=== PATIENT | male | born 1955 | race Caucasian/White ===

== ENCOUNTER 2016-06-09 23:58 | Inpatient (IN) | payer OTHER ==
[~2016-06-09] VITALS: Ht 180.3 cm; Wt 75.9 kg
--- NOTE | 2016-06-10 01:14 | ED CLINICAL REPORT ---
Clinical Report - Physicians/Mid Levels [facility] [address] [place] [address] 06/09/2016 23:59 Patient: CORAZON SHIPLEY Time Seen: 00:28. Arrived- By private vehicle. Historian- patient. HISTORY OF PRESENT ILLNESS Chief Complaint: FACIAL DROOP. This started yesterday about 07:00 am and is still present. It was abrupt in onset (woke with the symptoms yesterday (Jun 09)). The patient has had weakness of the left face. No numbness, tingling, impaired speech or swallowing or visual disturbance. No recent fall. No difficulty walking. At its maximum deficit described as moderate. When seen in the E.D.,deficit described as moderate. No dizziness, altered mental status, seizure or blackouts. Usually is alert and oriented X3 and has normal mobility. Similar symptoms previously: None. Recent medical care: The patient was seen recently at this facility in the emergency department. Seen for other problems. Diagnosis: (left side facial Shingles with left keratitis). ( Seen about 2 1/2 months ago at [facility]). REVIEW OF SYSTEMS The patient has had a subjective fever, joint pain, and back pain. No headache, head injury, chest pain, cough or sputum production. No sore throat, abdominal pain, nausea, diarrhea or black stools. No difficulty with urination, skin rash or bloody stools. All systems otherwise negative, except as recorded above. PAST HISTORY See nurses notes. Hypertension. Gastroesophageal reflux. Anxiety. Substance abuse (heroin). Surgeries: Hip surgery. Medications: ALPRAZolam Oral. Atenolol Oral. Lisinopril Oral. Protonix Oral. Allergies: Penicillins. SOCIAL HISTORY Smoker- current status unknown. Alcohol use. History of drug use muscles the drug - usually in the left deltoid area: heroin. Not an IV drug user. Is a local resident. ADDITIONAL NOTES The nursing notes have been reviewed. PHYSICAL EXAM Vital Signs: 06/10/2016 01:10 BP: 130/76. HR: 92. RR: 16. O2 saturation: 100%. Temp: 100.6 F. 06/10/2016 00:08 BP: 145/84. HR: 107. RR: 22. O2 saturation: 98%. Temp: 99.8 F. Pain level now: 7/10. Appearance: Alert. Patient in moderate distress. Odor of alcohol is not present. Head: Head atraumatic. Eyes: No nystagmus. Right pupil round and reactive to light directly and consensually. Right pupil not dilated or constricted. Right cornea: small abrasion(s) located inferiorly and laterally. No foreign body or ulceration. Right anterior chamber: No hyphema. Right conjunctiva: mild swelling. Right periorbital area: mild erythema. No tenderness or swelling. ENT: Normal ENT inspection. Airway intact. Pharynx normal. No trouble handling secretions or pharyngeal erythema. Neck: Normal inspection. Neck supple. No meningeal signs or carotid bruit. CVS: Heart sounds normal. Pulses normal. No cardiac murmur. Respiratory: No respiratory distress. Breath sounds normal. Abdomen: Soft and nontender. Back: Normal inspection. Skin: No cyanosis. Skin dry. No pallor. Normal skin color. No rash. Normal skin turgor. No diaphoresis. Extremities: Extremities exhibit normal ROM. No calf tenderness. No lower extremity edema. Neuro: Alert. Oriented X 3. No aphasia. Mood/affect normal. Mild dysarthria. Cranial nerve deficit present, as evidenced by a right facial droop, right facial weakness and ptosis on the right (unable to wrinkle the right forehead). No EOM weakness or palsy, nystagmus, hearing deficit or uvular deviation. No tongue deviation, difficulty swallowing, trapezius weakness or sternocleidomastoid weakness. Moderate right-sided facial weakness. No sparing of forehead. No decrease in corneal reflex. Normal gait. The patient has had localized weakness of the right face (moderate), No right arm weakness, right hand weakness, right leg weakness or right foot weakness. No sensory deficit. No depression of the gag reflex. LABS, X-RAYS, AND EKG CT Head: No hemorrhage, no intracranial mass, no midline shift, no hydrocephalus and no atrophy. (No acute intracranial abnormality. Mild bilateral ethmoid and right maxillary sinus mucosal disease). Head CT performed without contrast. The study was independently viewed by me, interpreted by the radiologist and discussed with the radiologist. Laboratory Tests: CBC w Diff: (RONALD: 06/10/2016 00:15) ( MsgRcvd 06/10/2016 01:07) Final results Test Result Flag Units (Reference) WHITE BLOOD COUNT 12.3 H K/uL (4.5-11.5) RED BLOOD COUNT 4.41 L M/uL (4.50-5.90) HEMOGLOBIN 12.8 L gm/dL (13.5-17.5) HEMATOCRIT 39.5 L % (41.0-53.0) MEAN CELL VOLUME 90 fL (80-100) MEAN CORPUSCULAR HGB 29 pg (26-34) MEAN CORPUSCULAR HGB CONC 33 g/dL (31-37) RED CELL DISTRIBUTION WIDTH 13.5 % (11.6-14.8) PLATELET COUNT 262 K/uL (150-400) LYMPH % 25.3 % (25-40) MONO % 2.4 L % (3-14) GRANULOCYTE % 72.3 SED RATE WESTERGREN 18 mm/hr (0-20) CMP: (RONALD: 06/10/2016 00:15) ( MsgRcvd 06/10/2016 01:00) Final results Test Result Flag Units (Reference) GLUCOSE 84 mg/dL (70-110) BUN 4 L mg/dL (7-18) CREATININE 0.6 mg/dL (0.6-1.3) Estimated GFR >60 mL/min Estimated GFR- >60 mL/min Note: Persistent reduction over 3 months in eGFR<60 mL/min/1.73 m2 defines CKD. Patients with eGFR values>=60 mL/min/1.73 m2 may also have CKD if evidence ofpersistent proteinuria. Additional information may be foundat www.kidney.org. SODIUM 140 mmol/L (136-145) POTASSIUM 4.0 mmol/L (3.5-5.1) CHLORIDE 102 mmol/L (98-107) CARBON DIOXIDE 30 mmol/L (21-32) CALCIUM 8.3 L mg/dL (8.5-10.1) TOTAL PROTEIN 6.6 g/dL (6.4-8.2) ALBUMIN 3.0 L g/dL (3.3-5.0) BILIRUBIN, TOTAL 0.6 mg/dL (0.0-1.0) ALKALINE PHOSPHATASE 91 U/L (46-116) AST (SGOT) 26 U/L (15-37) ALT (SGPT) 17 U/L (12-78) C-REACTIVE PROTEIN 1.9 H mg/dL (0.0-0.9) . Microbiology: Blood culture x2 ordered. Pulse Oximetry: 06/10/2016 00:08 O2 saturation: 98%. (FIO2 - room air). Interpretation: normal. PROGRESS AND PROCEDURES Course of Care: Acyclovir 800 mg PO given. Normal Saline 1 liter IVPB given. Vancomycin 2 grams IVPB given. Solu-Medrol 125 mg IVP given. Dilaudid 1 mg IVP given. Pt with classic Lua's Palsy symptoms and exam, but also with fever. CT unremarkable except for ethmoid and maxillary sinusitis. No indication of cavernous vein thrombosis now or brain abscess, but may consider MRI if not improving. Pt is also an injection drug user and has a fever ("shooter with a fever") and thus endocarditis must be ruled out (blood cultures, echo - transthoracic and then transesophageal if needed). See: Ludwin RJ, Bj FD. Bacterial infections in drug users. N Engl J Med 2005;353:8002-6380. Discussed case with hospitalist, ([facility] call returned 02:12). Reviewed test results. Agreed upon treatment plan. Health care provider will see patient in hospital. Patient/family counseled. Old ED records reviewed. Admission orders written. Disposition: Admitted to Acute Care. Condition: stable and improved. CLINICAL IMPRESSION Acute fever (with history of injection drug use). 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 Acute maxillary and ethmoidal sinusitis (bilateral ethmoid and right maxillary sinus mucosal disease). Chronic substance abuse- tobacco (cigarettes), heroin. No intoxication, perceptual disturbances or drug induced psychotic disorder. Mild acute anemia. Mild leukocytosis. No lymphocytosis. Possible acute infective endocarditis with drug abuse. Clinical picture does not suggest brain abscess. (Electronically signed by Murphy Solitario DO 06/10/2016 4:07)
--- NOTE | 2016-06-10 01:14 | ED NURSING NOTES ---
Clinical Report - Nurses [place] [address] [address] 06/09/2016 23:59 Patient: CORAZON SHIPLEY TRIAGE Triage time 0008 AM. Acuity: LEVEL 3. Chief Complaint: WEAKNESS, NUMBNESS and FACIAL DROOP and (left side). Alert. No acute distress. SEPSIS SCREEN: Sepsis Screen. Negative (no infection suspected/documented). --00:22 Carolyne Holloway R.N. 00:08 06/10/16. BP: 145/84 (regular adult cuff) taken on the left arm, via an automated monitor, while lying. HR: 107. RR: 22. O2 saturation: 98% on room air. Temp: 99.8 F (oral). Pain level now: 11/10. --00:22 Carolyne Holloway R.N. CESAR COMA SCORE: Corn Coma Scale: 15- eyes open spontaneously (4); best verbal response- oriented x 4 (5); best motor response- obeys commands (6). --00:22 Carolyne Holloway R.N. 01:10 06/10/16. BP: 130/76. HR: 92. RR: 16. O2 saturation: 100%. Temp: 100.6 F (rectal). --01:10 Sriram Muñiz R.N. Chief Complaint: FACIAL DROOP. --01:11 Sriram Muñiz R.N. Weight: 79.3 kg stated. Height/Length: 70 inches Per Patient. BMI: 25.1. --00:17 Carolyne Holloway R.N. Medications ALPRAZolam Oral. Atenolol Oral. Lisinopril Oral. Protonix Oral. --00:09 Carolyne Holloway R.N. Medication/allergy information source: the patient. --00:22 Carolyne Holloway R.N. Allergies Penicillins. --00: Carolyne Holloway R.N. History Arrived by private vehicle. Historian: patient. ( PT states as of this am pt noticed eye tearing up on right side with redness, right side droopiness at about 8pm with numbness accompanied with trouble speaking "tongue gets thicker"). Onset was gradual. (4 hours). He has had dizziness. He has had new onset of numbness of the right face. No headache, recent fall, impaired speech or trouble walking. 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 PAST MEDICAL HX: Immunizations: up-to-date. SOCIAL HX: Heavy tobacco smoker- 1 pack per day. Alcohol use. History of weekly drug use: heroin. No infectious disease exposure. ABUSE ASSESSMENT: No report of abuse. SELF HARM ASSESSMENT: A self harm assessment was performed. The patient answered "no" to the question "Do you have thoughts of harming or killing yourself?" and "Have you recently had thoughts about harming or killing others?". FALL RISK ASSESSMENT: Fall risk assessment completed. No fall risk identified. NUTRITIONAL RISK ASSESSMENT: The nutritional risk assessment revealed no deficiencies. FUNCTIONAL ASSESSMENT: Functional assessment: no impairments noted. LEARNING NEEDS ASSESSMENT: The learning needs assessment revealed no barriers. SKIN INTEGRITY ASSESSMENT: Skin integrity risk assessment completed. No skin integrity risk identified. --00:22 Carolyne Holloway R.N. PROBLEMS: Herpes Zoster. Anxiety Reaction. Hypertension. Gastroesophageal Reflux Disease. --00:09 Carolyne Holloway R.N. ADDITIONAL SURGERIES: Hip Surgery. --00:09 Carolyne Holloway R.N. PHYSICAL ASSESSMENT Ambulatory to room. Baseline functional status: usually alert, oriented x4 and cooperative. Verbal response: usually clear and appropriate. Motor response: usually steady gait and moves all extremities equally GENERAL / NEURO / PSYCH: Awake. Oriented X 4. Alert. Appears in no acute distress. Slurred speech. Mood/affect normal. Moves all extremities equally. No motor deficit. He has had numbness of the right face. No sensory deficit. HEENT: No facial asymmetry noted. Right-sided facial weakness. Pupils equal, round and reactive to light. EOM intact. Pharynx within normal limits. RESPIRATORY: Breath sounds within normal limits. Respirations not labored. CVS: Normal sinus rhythm noted. Capillary refill less than 2 seconds. SKIN: Skin is intact, warm and dry. --00:37 Sriram Muñiz R.N. NURSING PROGRESS NOTES Call light placed in reach. Side rails up x 2. Bed placed in lowest position. Brakes of bed on. --00:37 Sriram Muñiz R.N. 01:19 06/10/2016 Site #1 started via IV in the right forearm with an 20g angiocath; one attempt. Blood drawn: rainbow set. Saline lock flushed with 10 mL saline. --01:19 Sriram Muñiz R.N. 01:19 06/10/2016 Started IV Fluids IV NS (Saline); bolus of 1000 mL wide open via site #1 via IV pump. Allergies verified and confirmed 5 rights. IV patency established. IV site checked: no pain, redness, or swelling. IV flushed thoroughly pre- and post-medication administration. --01:19 Sriram Muñiz R.N. 01:46 06/10/2016 SOLU-MEDROL (MethylPREDNISolone Sodium Succ) IVP 125 mg given over 2 minute(s) via site #1. Allergies verified and confirmed 5 rights. IV patency established. IV site checked: no pain, redness, or swelling. IV flushed thoroughly pre- and post-medication administration. IVP given by RN. --01:46 Sriram Muñiz R.N. 01:46 06/10/2016 Acyclovir PO 800 mg given. Allergies verified and confirmed 5 rights. --01:46 Sriram Muñiz R.N. 01:53 06/10/2016 Started 2 gm of Vancomycin IVPB in bag #1 500 mL; at 270 mL/hr over 2 hour(s) via site #1 via IV pump. Allergies verified and confirmed 5 rights. IV patency established. IV site checked: no pain, redness, or swelling. IV flushed thoroughly pre- and post-medication administration. --01:53 Sriram Muñiz R.N. 01:54 06/10/16. BP: 134/77. HR: 86. RR: 16. O2 saturation: 100%. --01:55 Sriram Muñiz R.N. Reassurance given. Call light placed in reach. Side rails up x 2. Bed placed in lowest position. Brakes of bed on. --01:55 Sriram Muñiz R.N. 01:56 06/10/2016 Proparacaine Eye Drops 2 drop given. (placed at bedside). --01:56 Kevin Quesada R.N. 01:56 06/10/2016 FLUORESCEIN Opth soln 1 Strip given. (placed at bedside). --01:56 Kevin Quesada R.N. 02:48 06/10/2016 Dilaudid (HYDROmorphone HCl PF) IVP 1 mg given over 2 minute(s) via site #1. Allergies verified, confirmed 5 rights and sedative warning given to the patient. IV patency established. IV site checked: no pain, redness, or swelling. IV flushed thoroughly pre- and post-medication administration. IVP given by RN. --02:48 Sriram Muñiz R.N. 02:49 06/10/16. BP: 141/77. HR: 83. RR: 16. O2 saturation: 100%. --02:50 Sriram Muñiz R.N. Reassurance given. Call light placed in reach. Side rails up x 2. Bed placed in lowest position. Brakes of bed on. Care transferred and report given (Aliya). --02:50 Sriram Muñiz R.N. 03:15 06/10/2016 IV Fluids IV NS Continued: upon admission at the rate of 250 mL/hr bag #2. IV patency established. IV site checked: no pain, redness, or swelling. IV flushed thoroughly. --03:15 Sriram Muñiz R.N. DISPOSITION / DISCHARGE Disposition: observation in Acute Care (0312 AM). Report was given to a nurse via a phone call. Report included patient's care, treatment, medications, reviewed medication reconcilliation, and condition (including any recent changes or anticipated changes). All questions were answered. Report was acknowledged and care was transferred. (Aliya). ( Patient transported up to room 211 by [facility] manager facility.). Patient's personal items include: shirt, pants, undergarments, coat, glasses, wallet and cell phone; items were placed in belongings bag, given to the patient and transported with the patient. Collection of belongings was witnessed by 1 nurse. --03:13 Sriram Muñiz R.N. Departure time: 0313 AM. --03:13 Sriram Muñiz R.N. 03:14 06/10/2016 Started IV Fluids IV NS (Saline); at 250 mL/hr via site #1 via IV pump. Allergies verified and confirmed 5 rights. IV patency established. IV site checked: no pain, redness, or swelling. IV flushed thoroughly pre- and post-medication administration. --03:14 Sriram Muñiz R.N. 03:14 06/10/2016 Vancomycin IVPB Continued: upon admission at the rate of 270 mL/hr. 200 mL remaining bag #1. IV patency established. IV site checked: no pain, redness, or swelling. IV flushed thoroughly. --03:14 Sriram Muñiz R.N. 03:14 06/10/2016 IV Fluids IV NS Discontinued: bag #1 completed upon transfer. Total amount infused: 1000 mL. IV patency established. IV site checked: no pain, redness, or swelling. IV flushed thoroughly. --03:14 Sriram Muñiz R.N. Locked/Released at 06/10/2016 3:15 by Sriram Muñiz R.N.
--- NOTE | 2016-06-10 01:14 | ED ORDER SUMMARY ---
..... Patient: CORAZON SHIPLEY OrderSheet [facility] VisitID: [id number] [place] [address] 60y, M Registration Date/Time: 06/09/2016 ORDER SHEET Weight: 79.3 kg (stated) Allergies: Penicillins GENERAL ORDERS: CT Head wo Cont (right face weakness - c/w Lua's Palsy) Urgent (00:39 06/10/2016 PHutchinson DO) (Ack 0:47 CHategekimana) (1:05 GUnger) Rectal Temperature (00:41 06/10/2016 PHutchinson DO) (1:11 HOShaughnessy R.N.) CBC w Diff Urgent (00:42 06/10/2016 PHutchinson DO) (Ack 0:47 CHategekimana) (0:48 EHassan R.N.) CMP Urgent (00:42 [facility]2016 [facility] (Ack 0:47 CHategekimana) (0:48 EHassan R.N.) ESR Urgent (00:42 06/10/2016 PHutchinson DO) (Ack 0:47 CHategekimana) (0:48 EHassan R.N.) CRP Urgent (00:42 06/10/2016 PHutchinson DO) (Ack 0:47 CHategekimana) (0:48 EHassan R.N.) Blood Culture (No) (N/A) Urgent (01:14 [facility]10/2016 [facility] (Ack 1:18 CHategekimana) (1:25 HOShaughnessy R.N.) MEDICATION ORDERS: Acyclovir PO 800 mg (NOW) (01:33 06/10/2016 [facility] DO) (1:46 HOShaughnessy R.N.) Proparacaine Eye Drops (Solution 0.5 %) 2 drops (place at bedside) (01:55 06/10/2016 JQuivey R.N. verbal order read back to [facility]) (1:56 JQuivey R.N.) Fluorescein Eye Strips 1 strips (Place at bedside ) (01:55 06/10/2016 Marques Gipson verbal order read back to [facility]) (1:56 Marques Gutierrez.) IV FLUIDS: IV NS : initial bolus 1000 mL (1000 mL/hr), then 250 mL/hr for X4 (NOW) (00:42 06/10/2016 [facility]) (1:19 Roberta R.N.) Vancomycin IV 2 gm/500 mL (after blood cultures) (01:15 06/10/2016 [facility]) (1:53 Roberta R.N.) Solu-MEDROL IV 125 mg (NOW) (01:32 06/10/2016 [facility]) (1:46 Roberta R.N.) Dilaudid IV 1 mg (HIGH ALERT MEDICATION, NOW) (02:24 06/10/2016 [facility]) (2:48 Roberta R.N.) ORDER SHEET NOTES: [Electronically signed by Sriram Muñiz R.N. (03:15 06/10/2016)] [Electronically signed by Murphy Solitario DO (04:07 06/10/2016)] [Electronically locked/signed by Sriram Muñiz R.N. (03:15 06/10/2016)]
--- NOTE | 2016-06-10 01:14 | ED NURSING NOTES ---
Clinical Report - Nurses [place] [address] [place] [address] 06/09/2016 23:59 Patient: CORAZON SHIPLEY TRIAGE Triage time 0008 AM. Acuity: LEVEL 3. Chief Complaint: WEAKNESS, NUMBNESS and FACIAL DROOP and (left side). Alert. No acute distress. SEPSIS SCREEN: Sepsis Screen. Negative (no infection suspected/documented). --00:22 Carolyne Holloway R.N. 00:08 06/10/16. BP: 145/84 (regular adult cuff) taken on the left arm, via an automated monitor, while lying. HR: 107. RR: 22. O2 saturation: 98% on room air. Temp: 99.8 F (oral). Pain level now: 11/10. --00:22 Carolyne Holloway R.N. CESAR COMA SCORE: [place] Coma Scale: 15- eyes open spontaneously (4); best verbal response- oriented x 4 (5); best motor response- obeys commands (6). --00:22 Carolyne oHlloway R.N. 01:10 06/10/16. BP: 130/76. HR: 92. RR: 16. O2 saturation: 100%. Temp: 100.6 F (rectal). --01:10 Sriram Muñiz R.N. Chief Complaint: FACIAL DROOP. --01:11 Sriram Muñiz R.N. Weight: 79.3 kg stated. Height/Length: 70 inches Per Patient. BMI: 25.1. --00:17 Carolyne Holloway R.N. Medications ALPRAZolam Oral. Atenolol Oral. Lisinopril Oral. Protonix Oral. --00:09 Carolyne Holloway R.N. Medication/allergy information source: the patient. --00:22 Carolyne Holloway R.N. Allergies Penicillins. --00: Carolyne Holloway R.N. History Arrived by private vehicle. Historian: patient. ( PT states as of this am pt noticed eye tearing up on right side with redness, right side droopiness at about 8pm with numbness accompanied with trouble speaking "tongue gets thicker"). Onset was gradual. (4 hours). He has had dizziness. He has had new onset of numbness of the right face. No headache, recent fall, impaired speech or trouble walking. 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 PAST MEDICAL HX: Immunizations: up-to-date. SOCIAL HX: Heavy tobacco smoker- 1 pack per day. Alcohol use. History of weekly drug use: heroin. No infectious disease exposure. ABUSE ASSESSMENT: No report of abuse. SELF HARM ASSESSMENT: A self harm assessment was performed. The patient answered "no" to the question "Do you have thoughts of harming or killing yourself?" and "Have you recently had thoughts about harming or killing others?". FALL RISK ASSESSMENT: Fall risk assessment completed. No fall risk identified. NUTRITIONAL RISK ASSESSMENT: The nutritional risk assessment revealed no deficiencies. FUNCTIONAL ASSESSMENT: Functional assessment: no impairments noted. LEARNING NEEDS ASSESSMENT: The learning needs assessment revealed no barriers. SKIN INTEGRITY ASSESSMENT: Skin integrity risk assessment completed. No skin integrity risk identified. --00:22 Carolyne Holloway R.N. PROBLEMS: Herpes Zoster. Anxiety Reaction. Hypertension. Gastroesophageal Reflux Disease. --00:09 Carolyne Holloway R.N. ADDITIONAL SURGERIES: Hip Surgery. --00:09 Carolyne Holloway R.N. PHYSICAL ASSESSMENT Ambulatory to room. Baseline functional status: usually alert, oriented x4 and cooperative. Verbal response: usually clear and appropriate. Motor response: usually steady gait and moves all extremities equally GENERAL / NEURO / PSYCH: Awake. Oriented X 4. Alert. Appears in no acute distress. Slurred speech. Mood/affect normal. Moves all extremities equally. No motor deficit. He has had numbness of the right face. No sensory deficit. HEENT: No facial asymmetry noted. Right-sided facial weakness. Pupils equal, round and reactive to light. EOM intact. Pharynx within normal limits. RESPIRATORY: Breath sounds within normal limits. Respirations not labored. CVS: Normal sinus rhythm noted. Capillary refill less than 2 seconds. SKIN: Skin is intact, warm and dry. --00:37 Sriram Muñiz R.N. NURSING PROGRESS NOTES Call light placed in reach. Side rails up x 2. Bed placed in lowest position. Brakes of bed on. --00:37 Sriram Muñiz R.N. 01:19 06/10/2016 Site #1 started via IV in the right forearm with an 20g angiocath; one attempt. Blood drawn: rainbow set. Saline lock flushed with 10 mL saline. --01:19 Sriram Muñiz R.N. 01:19 06/10/2016 Started IV Fluids IV NS (Saline); bolus of 1000 mL wide open via site #1 via IV pump. Allergies verified and confirmed 5 rights. IV patency established. IV site checked: no pain, redness, or swelling. IV flushed thoroughly pre- and post-medication administration. --01:19 Sriram Muñiz R.N. 01:46 06/10/2016 SOLU-MEDROL (MethylPREDNISolone Sodium Succ) IVP 125 mg given over 2 minute(s) via site #1. Allergies verified and confirmed 5 rights. IV patency established. IV site checked: no pain, redness, or swelling. IV flushed thoroughly pre- and post-medication administration. IVP given by RN. --01:46 Sriram Muñiz R.N. 01:46 06/10/2016 Acyclovir PO 800 mg given. Allergies verified and confirmed 5 rights. --01:46 Sriram Muñiz R.N. 01:53 06/10/2016 Started 2 gm of Vancomycin IVPB in bag #1 500 mL; at 270 mL/hr over 2 hour(s) via site #1 via IV pump. Allergies verified and confirmed 5 rights. IV patency established. IV site checked: no pain, redness, or swelling. IV flushed thoroughly pre- and post-medication administration. --01:53 Sriram Muñiz R.N. 01:54 06/10/16. BP: 134/77. HR: 86. RR: 16. O2 saturation: 100%. --01:55 Sriram Muñiz R.N. Reassurance given. Call light placed in reach. Side rails up x 2. Bed placed in lowest position. Brakes of bed on. --01:55 Sriram Muñiz R.N. 01:56 06/10/2016 Proparacaine Eye Drops 2 drop given. (placed at bedside). --01:56 Kevin Quesada R.N. 01:56 06/10/2016 FLUORESCEIN Opth soln 1 Strip given. (placed at bedside). --01:56 Kevin Quesada R.N. 02:48 06/10/2016 Dilaudid (HYDROmorphone HCl PF) IVP 1 mg given over 2 minute(s) via site #1. Allergies verified, confirmed 5 rights and sedative warning given to the patient. IV patency established. IV site checked: no pain, redness, or swelling. IV flushed thoroughly pre- and post-medication administration. IVP given by RN. --02:48 Sriram Muñiz R.N. 02:49 06/10/16. BP: 141/77. HR: 83. RR: 16. O2 saturation: 100%. --02:50 Sriram Muñiz R.N. Reassurance given. Call light placed in reach. Side rails up x 2. Bed placed in lowest position. Brakes of bed on. Care transferred and report given (Aliya). --02:50 Sriram Muñiz R.N. 03:15 06/10/2016 IV Fluids IV NS Continued: upon admission at the rate of 250 mL/hr bag #2. IV patency established. IV site checked: no pain, redness, or swelling. IV flushed thoroughly. --03:15 Sriram Muñiz R.N. DISPOSITION / DISCHARGE Disposition: observation in Acute Care (0312 AM). Report was given to a nurse via a phone call. Report included patient's care, treatment, medications, reviewed medication reconcilliation, and condition (including any recent changes or anticipated changes). All questions were answered. Report was acknowledged and care was transferred. (Aliya). ( Patient transported up to room 211 by Lance prototype technician.). Patient's personal items include: shirt, pants, undergarments, coat, glasses, wallet and cell phone; items were placed in belongings bag, given to the patient and transported with the patient. Collection of belongings was witnessed by 1 nurse. --03:13 Sriram Muñiz R.N. Departure time: 0313 AM. --03:13 Sriram Muñiz R.N. 03:14 06/10/2016 Started IV Fluids IV NS (Saline); at 250 mL/hr via site #1 via IV pump. Allergies verified and confirmed 5 rights. IV patency established. IV site checked: no pain, redness, or swelling. IV flushed thoroughly pre- and post-medication administration. --03:14 Sriram Muñiz R.N. 03:14 06/10/2016 Vancomycin IVPB Continued: upon admission at the rate of 270 mL/hr. 200 mL remaining bag #1. IV patency established. IV site checked: no pain, redness, or swelling. IV flushed thoroughly. --03:14 Sriram Muñiz R.N. 03:14 06/10/2016 IV Fluids IV NS Discontinued: bag #1 completed upon transfer. Total amount infused: 1000 mL. IV patency established. IV site checked: no pain, redness, or swelling. IV flushed thoroughly. --03:14 Sriram Muñiz R.N. Locked/Released at 06/10/2016 3:15 by Sriram Muñiz R.N.
--- NOTE | 2016-06-10 01:14 | ED ORDER SUMMARY ---
..... Patient: CORAZON SHIPLEY OrderSheet [facility] VisitID: [id number] [place] [address] 60y, M Registration Date/Time: 06/09/2016 ORDER SHEET Weight: 79.3 kg (stated) Allergies: Penicillins GENERAL ORDERS: CT Head wo Cont (right face weakness - c/w Lua's Palsy) Urgent (00:39 06/10/2016 PHutchinson DO) (Ack 0:47 CHategekimana) (1:05 GUnger) Rectal Temperature (00:41 06/10/2016 PHutchinson DO) (1:11 HOShaughnessy R.N.) CBC w Diff Urgent (00:42 06/10/2016 PHutchinson DO) (Ack 0:47 CHategekimana) (0:48 EHassan R.N.) CMP Urgent (00:42 [facility]10/2016 [facility] (Ack 0:47 CHategekimana) (0:48 EHassan R.N.) ESR Urgent (00:42 06/10/2016 PHutchinson DO) (Ack 0:47 CHategekimana) (0:48 EHassan R.N.) CRP Urgent (00:42 06/10/2016 PHutchinson DO) (Ack 0:47 CHategekimana) (0:48 EHassan R.N.) Blood Culture (No) (N/A) Urgent (01:14 [facility]10/2016 [facility] (Ack 1:18 CHategekimana) (1:25 HOShaughnessy R.N.) MEDICATION ORDERS: Acyclovir PO 800 mg (NOW) (01:33 06/10/2016 [facility] DO) (1:46 HOShaughnessy R.N.) Proparacaine Eye Drops (Solution 0.5 %) 2 drops (place at bedside) (01:55 06/10/2016 JQuivey R.N. verbal order read back to [facility]) (1:56 JQuivey R.N.) Fluorescein Eye Strips 1 strips (Place at bedside ) (01:55 06/10/2016 Marques Gipson verbal order read back to [facility]) (1:56 Marques Gutierrez.) IV FLUIDS: IV NS : initial bolus 1000 mL (1000 mL/hr), then 250 mL/hr for X4 (NOW) (00:42 06/10/2016 [facility]) (1:19 Roberta R.N.) Vancomycin IV 2 gm/500 mL (after blood cultures) (01:15 06/10/2016 [facility]) (1:53 Roberta R.N.) Solu-MEDROL IV 125 mg (NOW) (01:32 06/10/2016 [facility]) (1:46 Roberta R.N.) Dilaudid IV 1 mg (HIGH ALERT MEDICATION, NOW) (02:24 06/10/2016 [facility]) (2:48 Roberta R.N.) ORDER SHEET NOTES: [Electronically signed by Sriram Muñiz R.N. (03:15 06/10/2016)] [Electronically signed by Murphy Solitario DO (04:07 06/10/2016)] [Electronically locked/signed by Sriram Muñiz R.N. (03:15 06/10/2016)]
[2016-06-10 03:29] VITALS: BP 156/96
--- NOTE | 2016-06-10 04:08 | ED DISCHARGE INSTRUCTIONS ---
Patient: CORAZON SHIPLEY General Instructions [facility] VisitID: [id number] [place] [address] 60y, M Registration Date/Time: 06/09/2016 Acute fever (with history of injection drug use). 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 Acute maxillary and ethmoidal sinusitis (bilateral ethmoid and right maxillary sinus mucosal disease). Chronic substance abuse- tobacco (cigarettes), heroin. No intoxication, perceptual disturbances or drug induced psychotic disorder. Mild acute anemia. Mild leukocytosis. No lymphocytosis. ADDITIONAL INFORMATION Opiate Abuse Use and abuse of heroin or prescription pain medicines (Vicodin, codeine) may lead to physical ADDICTION or psychological DEPENDENCE. Once this occurs, you are at greater risk for any of the following: - Craving for the drug and unable to stop using the drug even though you think you want to stop (psychological dependence) - Drug withdrawal symptoms if you stop taking the drug (physical addiction) - Loss of your job or your family - Arrest, conviction and alf sentence for possession of an illegal substance or for driving under the influence of such a substance - Accidental injuries to yourself or others while you are under the influence of the drug (in a car or at home). - HIV infection (much greater risk if you use IV drugs) - Other sexually transmitted diseases (Herpes, chlamydia, gonorrhea and others) - Severe and fatal infection of the heart valves (if you use IV drugs) - Stroke, heart attack, hepatitis B or C, kidney failure - from overdose Home Care: 1) Admit you have a drug problem. Ask for help from your family and close friends. 2) Seek professional help. This could be individual psychotherapy, counseling, or a drug treatment program (outpatient or residential). 3) Join a self-help group for drug abuse. 4) Avoid friends who abuse drugs themselves or tempt you to continue your habit 5) Eat a balanced diet and begin a regular exercise program. Follow Up with your doctor or as advised by our staff. Contact one of the resources below for help. National [place] on Alcoholism and Drug Dependence, www.ncadd.org 223-153-TWYM Narcotics Anonymous (check your phone book for a local listing or call 160-037-4838) www.na.org National Alcohol and Substance Abuse Information Center (for referral to treatment programs) Www.Addictioncare[employer] 086-911-0949 Get Prompt Medical Attention if any of the following occur: -- Symptoms of withdrawal (agitation, anxiety, trembling, sweats, diarrhea, unable to sleep) -- Chest pain -- Unexplained fever over 100.4 F (38.0 C) -- Excessive drowsiness or inability to be awakened -- Slow breathing under 8 breaths per minute -- Shortness of breath or cough with colored sputum -- Redness, swelling or tenderness at an injection site You have been given the following additional information: Opiate Abuse (Electronically signed by Murphy Solitario DO 06/10/2016 4:07)
--- NOTE | 2016-06-10 04:08 | ED DISCHARGE INSTRUCTIONS ---
Patient: CORAZON SHIPLEY General Instructions [facility] VisitID: [id number] [place] [address] 60y, M Registration Date/Time: 06/09/2016 Acute fever (with history of injection drug use). 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 Acute maxillary and ethmoidal sinusitis (bilateral ethmoid and right maxillary sinus mucosal disease). Chronic substance abuse- tobacco (cigarettes), heroin. No intoxication, perceptual disturbances or drug induced psychotic disorder. Mild acute anemia. Mild leukocytosis. No lymphocytosis. ADDITIONAL INFORMATION Opiate Abuse Use and abuse of heroin or prescription pain medicines (Vicodin, codeine) may lead to physical ADDICTION or psychological DEPENDENCE. Once this occurs, you are at greater risk for any of the following: - Craving for the drug and unable to stop using the drug even though you think you want to stop (psychological dependence) - Drug withdrawal symptoms if you stop taking the drug (physical addiction) - Loss of your job or your family - Arrest, conviction and usp sentence for possession of an illegal substance or for driving under the influence of such a substance - Accidental injuries to yourself or others while you are under the influence of the drug (in a car or at home). - HIV infection (much greater risk if you use IV drugs) - Other sexually transmitted diseases (Herpes, chlamydia, gonorrhea and others) - Severe and fatal infection of the heart valves (if you use IV drugs) - Stroke, heart attack, hepatitis B or C, kidney failure - from overdose Home Care: 1) Admit you have a drug problem. Ask for help from your family and close friends. 2) Seek professional help. This could be individual psychotherapy, counseling, or a drug treatment program (outpatient or residential). 3) Join a self-help group for drug abuse. 4) Avoid friends who abuse drugs themselves or tempt you to continue your habit 5) Eat a balanced diet and begin a regular exercise program. Follow Up with your doctor or as advised by our staff. Contact one of the resources below for help. National [place] on Alcoholism and Drug Dependence, www.ncadd.org 511-158-ATCT Narcotics Anonymous (check your phone book for a local listing or call 372-934-1134) www.na.org National Alcohol and Substance Abuse Information Center (for referral to treatment programs) Www.Addictioncare[employer] 770-742-1356 Get Prompt Medical Attention if any of the following occur: -- Symptoms of withdrawal (agitation, anxiety, trembling, sweats, diarrhea, unable to sleep) -- Chest pain -- Unexplained fever over 100.4 F (38.0 C) -- Excessive drowsiness or inability to be awakened -- Slow breathing under 8 breaths per minute -- Shortness of breath or cough with colored sputum -- Redness, swelling or tenderness at an injection site You have been given the following additional information: Opiate Abuse (Electronically signed by Murphy Solitario DO 06/10/2016 4:07)
--- NOTE | 2016-06-10 04:08 | ED MED RECONCILIATION SUMMARY ---
Patient: CORAZON SHIPLEY Medication Reconciliation Report [facility] VisitID: [id number] [address] [place] [address] 60y, M Registration Date/Time: 06/09/2016 Weight: 79.3 kg Height/Length: 70 in. BMI: 25.1 ALLERGIES: Penicillins The patient's Home Medications are listed below: THE FOLLOWING MEDICATIONS NEED TO BE RECONCILED: ALPRAZolam Oral Atenolol Oral Lisinopril Oral Protonix Oral The source(s) of the original Home Medication information: patient The following Medications were given to the patient in the Emergency Department: IV NS IV Fluids bolus 1000 mL wide open, administered: 06/10/2016 1:19:00 AM SOLU-MEDROL [IVP] IVP 125 mg, administered: 06/10/2016 1:46:00 AM Acyclovir [PO] PO 800 mg, administered: 06/10/2016 1:46:00 AM Vancomycin [IVPB] IVPB bolus 0, then 2 gm 270 mL/hr, administered: 06/10/2016 1:53:00 AM Proparacaine [Eye Drops] Eye Drops 2 drop, administered: 06/10/2016 1:56:00 AM FLUORESCEIN [EYE STRIPS] Opth soln 1 Strip, administered: 06/10/2016 1:56:00 AM Dilaudid [IVP] IVP 1 mg, administered: 06/10/2016 2:48:00 AM IV NS IV Fluids bolus 0, then 250 mL/hr, administered: 06/10/2016 3:14:00 AM The following Medications were prescribed to the patient: None.
--- NOTE | 2016-06-10 04:08 | ED MED RECONCILIATION SUMMARY ---
Patient: CORAZON SHIPLEY Medication Reconciliation Report [facility] VisitID: [id number] [address] [place] [address] 60y, M Registration Date/Time: 06/09/2016 Weight: 79.3 kg Height/Length: 70 in. BMI: 25.1 ALLERGIES: Penicillins The patient's Home Medications are listed below: THE FOLLOWING MEDICATIONS NEED TO BE RECONCILED: ALPRAZolam Oral Atenolol Oral Lisinopril Oral Protonix Oral The source(s) of the original Home Medication information: patient The following Medications were given to the patient in the Emergency Department: IV NS IV Fluids bolus 1000 mL wide open, administered: 06/10/2016 1:19:00 AM SOLU-MEDROL [IVP] IVP 125 mg, administered: 06/10/2016 1:46:00 AM Acyclovir [PO] PO 800 mg, administered: 06/10/2016 1:46:00 AM Vancomycin [IVPB] IVPB bolus 0, then 2 gm 270 mL/hr, administered: 06/10/2016 1:53:00 AM Proparacaine [Eye Drops] Eye Drops 2 drop, administered: 06/10/2016 1:56:00 AM FLUORESCEIN [EYE STRIPS] Opth soln 1 Strip, administered: 06/10/2016 1:56:00 AM Dilaudid [IVP] IVP 1 mg, administered: 06/10/2016 2:48:00 AM IV NS IV Fluids bolus 0, then 250 mL/hr, administered: 06/10/2016 3:14:00 AM The following Medications were prescribed to the patient: None.
--- NOTE | 2016-06-10 04:08 | ED MAR SUMMARY ---
..... Medication Administration Record [facility] [address] [place] [address] Patient: CORAZON SHIPLEY Visit ID: [id number] 60y, M Weight: 79.3 kg Height/Length: 70 in BMI: 25.1 ALLERGIES: Penicillins Start 01:19 06/10/2016 Sriram Muñiz R.N., Stop 03:14 06/10/2016 Sriram Muñiz R.N. Medication Administered: IV NS (SALINE), Dose: IV Fluids, Bolus: 1000 mL wide open, Site: #1 right forearm. Medication Ordered: IV NS : initial bolus 1000 mL (1000 mL/hr), then 250 mL/hr for X4 (NOW). Given 01:46 06/10/2016 Sriram Muñiz R.N. Medication Administered: SOLU-MEDROL [IVP] (METHYLPREDNISOLONE SODIUM SUCC), Dose: 125 mg IVP over 2 minute(s), Site: #1 right forearm. Medication Ordered: Solu-MEDROL IV 125 mg (NOW). Given 01:46 06/10/2016 Sriram Muñiz R.N. Medication Administered: ACYCLOVIR [PO], Dose: 800 mg PO. Medication Ordered: Acyclovir PO 800 mg (NOW). Start 01:53 06/10/2016 Sriram Muñiz R.N., Continued Upon Admission 03:14 06/10/2016 Sriram Muñiz R.N. Medication Administered: VANCOMYCIN [IVPB], Dose: 2 gm IVPB over 2 hour(s), Rate: 270 mL/hr, Dispensed: 500 mL bag, Site: #1 right forearm. Medication Ordered: Vancomycin IV 2 gm/500 mL (after blood cultures). Given :06/10/2016 Kevin Quesada R.N. Medication Administered: PROPARACAINE [EYE DROPS], Dose: 2 drop Eye Drops. Medication Ordered: Proparacaine Eye Drops (Solution 0.5 %) 2 drops (place at bedside). Given 01:06/10/2016 Kevin Quesada R.N. Medication Administered: FLUORESCEIN [EYE STRIPS], Dose: 1 Strip Opth soln. Medication Ordered: Fluorescein Eye Strips 1 strips (Place at bedside ). Given 02:48 06/10/2016 Sriram Muñiz R.N. Medication Administered: DILAUDID [IVP] (HYDROMORPHONE HCL PF), Dose: 1 mg IVP over 2 minute(s), Site: #1 right forearm. Medication Ordered: Dilaudid IV 1 mg (HIGH ALERT MEDICATION, NOW). Start 03:14 06/10/2016 Sriram Muñiz RJúniorNJúnior, Continued Upon Admission 03:15 06/10/2016 Sriram Muñiz R.NJúnior Medication Administered: IV NS (SALINE), Dose: IV Fluids, Rate: 250 mL/hr, Site: #1 right forearm. Medication Ordered: IV NS : initial bolus 1000 mL (1000 mL/hr), then 250 mL/hr for X4 (NOW).
--- NOTE | 2016-06-10 04:08 | ED MAR SUMMARY ---
..... Medication Administration Record [facility] [address] [place] [address] Patient: CORAZON SHIPLEY Visit ID: [id number] 60y, M Weight: 79.3 kg Height/Length: 70 in BMI: 25.1 ALLERGIES: Penicillins Start 01:19 06/10/2016 Sriram Muñiz R.N., Stop 03:14 06/10/2016 Sriram Muñiz R.N. Medication Administered: IV NS (SALINE), Dose: IV Fluids, Bolus: 1000 mL wide open, Site: #1 right forearm. Medication Ordered: IV NS : initial bolus 1000 mL (1000 mL/hr), then 250 mL/hr for X4 (NOW). Given 01:46 06/10/2016 Sriram Muñiz R.N. Medication Administered: SOLU-MEDROL [IVP] (METHYLPREDNISOLONE SODIUM SUCC), Dose: 125 mg IVP over 2 minute(s), Site: #1 right forearm. Medication Ordered: Solu-MEDROL IV 125 mg (NOW). Given 01:46 06/10/2016 Sriram Muñiz R.N. Medication Administered: ACYCLOVIR [PO], Dose: 800 mg PO. Medication Ordered: Acyclovir PO 800 mg (NOW). Start 01:53 06/10/2016 Sriram Muñiz R.N., Continued Upon Admission 03:14 06/10/2016 Sriram Muñiz R.N. Medication Administered: VANCOMYCIN [IVPB], Dose: 2 gm IVPB over 2 hour(s), Rate: 270 mL/hr, Dispensed: 500 mL bag, Site: #1 right forearm. Medication Ordered: Vancomycin IV 2 gm/500 mL (after blood cultures). Given :06/10/2016 Kevin Quesada R.N. Medication Administered: PROPARACAINE [EYE DROPS], Dose: 2 drop Eye Drops. Medication Ordered: Proparacaine Eye Drops (Solution 0.5 %) 2 drops (place at bedside). Given 01:06/10/2016 Kevin Quesada R.N. Medication Administered: FLUORESCEIN [EYE STRIPS], Dose: 1 Strip Opth soln. Medication Ordered: Fluorescein Eye Strips 1 strips (Place at bedside ). Given 02:48 06/10/2016 Sriram Muñiz R.N. Medication Administered: DILAUDID [IVP] (HYDROMORPHONE HCL PF), Dose: 1 mg IVP over 2 minute(s), Site: #1 right forearm. Medication Ordered: Dilaudid IV 1 mg (HIGH ALERT MEDICATION, NOW). Start 03:14 06/10/2016 Sriram Muñiz RJúniorNJúnior, Continued Upon Admission 03:15 06/10/2016 Sriram Muñiz R.NJúnior Medication Administered: IV NS (SALINE), Dose: IV Fluids, Rate: 250 mL/hr, Site: #1 right forearm. Medication Ordered: IV NS : initial bolus 1000 mL (1000 mL/hr), then 250 mL/hr for X4 (NOW).
[2016-06-10] MEDS ORDERED: WELLBUTRIN SR150 MG PO (04:42)
[2016-06-10] MEDS ORDERED: XANAX0.5 MG PO (04:43)
[2016-06-10] MEDS ORDERED: ATENOLOL100 MG PO (04:44)
--- NOTE | 2016-06-10 06:19 | DIAGNOSTIC IMAGING REPORT ---
PROCEDURE: CT HEAD WITHOUT CONTRAST INDICATION: WEAKNESS TECHNIQUE: Noncontrast axial images with sagittal and coronal reformations. Preliminary report provided by Pierre Day MD ([facility]). COMPARISON: None. FINDINGS: Brain and ventricles are normal. No evidence of an acute process or hemorrhage. Mild to moderate mucosal thickening of the ethmoid air cells with minimal fluid in the right maxillary sinus. Cavernous carotid vascular calcifications. IMPRESSION: 1. Negative head CT. No evidence of intracranial abnormality. 2. Mild to moderate mucosal thickening in the ethmoid air cells with minimal fluid in the right maxillary sinus (acute or chronic changes). 3. Preliminary report provided to Dr. Solitario. All CT scans at this facility use dose modulation, iterative reconstruction, and/or weight-based dosing when appropriate to reduce radiation dose to as low as reasonably achievable.
--- NOTE | 2016-06-10 06:19 | DIAGNOSTIC IMAGING REPORT ---
PROCEDURE: CT HEAD WITHOUT CONTRAST INDICATION: WEAKNESS TECHNIQUE: Noncontrast axial images with sagittal and coronal reformations. Preliminary report provided by Pierre Day MD ([facility]). COMPARISON: None. FINDINGS: Brain and ventricles are normal. No evidence of an acute process or hemorrhage. Mild to moderate mucosal thickening of the ethmoid air cells with minimal fluid in the right maxillary sinus. Cavernous carotid vascular calcifications. IMPRESSION: 1. Negative head CT. No evidence of intracranial abnormality. 2. Mild to moderate mucosal thickening in the ethmoid air cells with minimal fluid in the right maxillary sinus (acute or chronic changes). 3. Preliminary report provided to Dr. Solitario. All CT scans at this facility use dose modulation, iterative reconstruction, and/or weight-based dosing when appropriate to reduce radiation dose to as low as reasonably achievable.
== END 2016-06-10 05:30 | disposition left against medical advice (07) | DRG 74 ==
LOC: ED SRH 23:58 → TRANS SRH 06-10 02:24 → ACUTE2 SRH 06-10 02:24
PROVIDERS: ADMIT Emergency Medicine
DX: G51.0 Bell's palsy (principal); R50.9 Fever, unspecified; J01.00 Acute maxillary sinusitis, unspecified; J01.20 Acute ethmoidal sinusitis, unspecified; F11.10 Opioid abuse, uncomplicated; D64.9 Anemia, unspecified
CPT/HCPCS: 90065; 90074; 90100; 91585; 95059; 95150

== ENCOUNTER 2016-06-26 10:59 | Emergency (ER) | payer OTHER ==
[~2016-06-26 10:59] MED LIST: ATENOLOL100 MG PO; WELLBUTRIN SR150 MG PO; XANAX0.5 MG PO
--- NOTE | 2016-06-26 13:15 | ED NURSING NOTES ---
Clinical Report - Nurses [facility] [address] [place] [address] 06/26/2016 11:03 Patient: CORAZON SHIPLEY TRIAGE Triage time 11:10 Jun 26 2016. Acuity: LEVEL 3. Chief Complaint: SKIN LESION and . on (L) Buttock. Alert. CAROL COMA SCORE: Carol Coma Scale: 15- eyes open spontaneously (4); best verbal response- oriented x 4 (5); best motor response- obeys commands (6). --11:23 Kevin Davila R.N. 11:10 06/26/16. BP: 129/55. HR: 70. RR: 16. O2 saturation: 100% on room air. Temp: 99.1 F (oral). Pain level now: 11/10. Additional comments: pain in lesi. --11:23 Kevin Davila R.N. Weight: 74.8 kg. Height/Length: 71 inches Per Patient. BMI: 23. --11:19 Kevin Davila R.N. Medications ALPRAZolam Oral 0.5 mg, 4x a day. Atenolol Oral (Tablet 100 mg) 1 tablet, daily. Protonix Oral 20 mg, daily. --11:14 Kevin Davila R.N. Wellbutrin Oral 150 mg, daily. --11:14 Kevin Davila R.N. Allergies Penicillins. Definite Moderate(itching, swelling) --11:14 Kevin Davila R.N. History Arrived by private vehicle. Historian: patient. Unaccompanied. Primary physician (Sergey Graham). ( Reddened painful area on (L) buttock. Pt states that his started ~ 5 days ago.). Reported as located on the left buttock. Onset. (about 4 - 5 days ago). It is described as burning and painful. 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 (last dose yesterday). PAST MEDICAL HX: Immunizations: up-to-date. SOCIAL HX: Light tobacco smoker (cigarette)- less than 1/2 a pack per day. History of drug use: heroin. No alcohol use. No infectious disease exposure. ABUSE ASSESSMENT: No report of abuse. FALL RISK ASSESSMENT: Fall risk assessment completed. No fall risk identified. NUTRITIONAL RISK ASSESSMENT: The nutritional risk assessment revealed no deficiencies. FUNCTIONAL ASSESSMENT: Functional assessment: no impairments noted. LEARNING NEEDS ASSESSMENT: The learning needs assessment revealed no barriers. SKIN INTEGRITY ASSESSMENT: Skin integrity risk assessment completed. No skin integrity risk identified. --11:23 Kevin Davila R.N. PROBLEMS: Leukocytosis. Anemia. Sinusitis. Lua's Palsy. Substance Abuse. Herpes Zoster. Anxiety Reaction. Hypertension. Gastroesophageal Reflux Disease. --11:18 Kevin Davila R.N. Infective Endocarditis [RuleOut]. --11:18 Kevin Davila R.N. ADDITIONAL SURGERIES: Hernia Repair. Hip Surgery. Shoulder Surgery. Tonsillectomy. --11:18 Kevin Davila R.N. Interventions ID band on patient. To treatment room. --11:23 Kevin Davila R.N. PHYSICAL ASSESSMENT Ambulatory to room. GENERAL / NEURO / PSYCH: Alert. Oriented X 4. HEENT: Pupils equal, round and reactive to light. RESPIRATORY: Respirations not labored. CVS: Pulses within normal limits. GI / : Abdomen nontender. SKIN: Skin is intact, warm and dry. Swelling on the left buttock. Erythema on the left buttock. --11:25 Kevin Davila R.N. NURSING PROGRESS NOTES Patient gowned. Reassurance given. Patient identifiers checked. Call light placed in reach. Side rails up. Bed placed in lowest position. Brakes of bed on. Patient ready for evaluation- chart flagged and ED physician notified. --11:24 Kevin Davila R.N. 13:10 06/26/2016 Bactrim DS (Sulfamethoxazole-TMP DS) PO Tablets 1 tab given. Allergies verified and confirmed 5 rights. --13:10 Kevin Davila R.N. 12:20. I & D: Incision and Drainage of abscess performed by ED physician. Assisted by one nurse. The abscess is located on the ((L) Buttock). Preparation: Incision and Drainage tray set up with 2% lidocaine. Procedure; cavity was irrigated with saline and packed with gauze. Sample obtained for cultures. A dressing was applied. Post-procedure: he was stable, no complications, bleeding controlled and dressing intact. Estimated blood loss: 25 mL. Total time of assist / procedure: 15 minutes. --16:09 Kevin Davila R.N. 13:00. Applied sterile bulky dressing consisting of 4x4 gauze. Secured with tape. --16:24 Kevin Davila R.N. DISPOSITION / DISCHARGE 13:15 06/26/16. BP: 128/66. HR: 66. RR: 16. O2 saturation: 99% on room air. Temp: 98.3 F (oral). Pain level now: 10/11. Additional comments: (L) Buttock pain. --16:32 Kevin Davila R.N. Departure time: 1320. --16:32 Kevin Davila R.N. 13:20. Condition at departure: improved. No learning barriers present. Discharge instructions provided and reviewed with the patient. Reviewed medication(s) (prescription given to pt). Reviewed wound care instructions. Reviewed referral to family practice for followup. Patient verbalized understanding. Written instructions provided in [place]. The patient was discharged by the physician. He was discharged home and unaccompanied at time of discharge. He left the Emergency Department ambulatory and via private vehicle. Patient driving. --16:34 Keivn Davila R.N. Locked/Released at 06/26/2016 16:34 by Kevin Davila R.N.
--- NOTE | 2016-06-26 13:15 | ED CLINICAL REPORT ---
Clinical Report - Physicians/Mid Levels [facility] [address] [place] [address] 06/26/2016 11:03 Patient: CORAZON SHIPLEY Time Seen: 11:10. Arrived- By private vehicle. Historian- patient. HISTORY OF PRESENT ILLNESS Chief Complaint: LESION and BOIL. This started several days ago and is still present. It is described as painful. It has been located on the left buttock. A cause has been identified (Pt shot up in that location.). Similar symptoms previously: Recent medical care: Not recently seen/assessed. REVIEW OF SYSTEMS No fever, chills, sore throat, cough or difficulty breathing. No enlarged lymph nodes, headache, eye irritation, chest pain or abdominal pain. No nausea, diarrhea, difficulty with urination, joint pain or vomiting. All systems otherwise negative, except as recorded above. PAST HISTORY Problems: Anemia. Lua's Palsy. Substance Abuse. Herpes Zoster. Anxiety Reaction. Hypertension. Gastroesophageal Reflux Disease. Additional Surgeries: Hernia Repair. Hip Surgery. Shoulder Surgery. Tonsillectomy. Medications: Wellbutrin Oral 150 mg, daily. ALPRAZolam Oral 0.5 mg, 4x a day. Atenolol Oral (Tablet 100 mg) 1 tablet, daily. Protonix Oral 20 mg, daily. Allergies: Penicillins. Definite Moderate(itching, swelling). SOCIAL HISTORY Smoker- current status unknown. History of drug use: heroin. No alcohol use. ADDITIONAL NOTES The nursing notes have been reviewed. PHYSICAL EXAM Vital Signs: 06/26/2016 11:10 BP: 129/55. HR: 70. RR: 16. O2 saturation: 100%. Temp: 99.1 F. Pain level now: 7/10. Have been reviewed. Appearance: Alert. Oriented X3. No acute distress. Eyes: Pupils equal, round and reactive to light. Conjunctivae and eyelids normal. ENT: Nose normal. Neck: Neck supple. Respiratory: No respiratory distress. Skin: Skin warm and dry. Single large abscess with fluctuance, pointing and cellulitis to left buttock. Extremities: Normal external inspection. Extremities nontender. Neuro: Oriented X 3. No motor deficit. No sensory deficit. LABS, X-RAYS, AND EKG Pulse Oximetry: 06/26/2016 11:10 O2 saturation: 100%. (FIO2 - room air). Interpretation: normal. PROGRESS AND PROCEDURES Incision & Drainage of Abscess: The abscess is located in the left buttock. The risks of the procedure, benefits and alternatives were explained. Local anesthesia provided using 2% lidocaine and 0.50% Marcaine. Skin cleansed with Betadine. The abscess was incised with a #11 surgical blade. A large amount of pus was drained. Cavity was irrigated with saline and packed with gauze. Sample obtained for cultures and gram stain. A dressing was applied. Course of Care: PT was given a dose of Bactrim after I&D was completed. Patient counseled in person regarding the patient's stable condition, diagnosis and need for follow-up. Concerns were addressed. Old medical records reviewed. Disposition: Discharged. Condition: stable and improved. CLINICAL IMPRESSION Single deep abscess to the left lower extremity with incision and drainage (buttock). INSTRUCTIONS Warnings: GENERAL WARNINGS: Return or contact your physician immediately if your condition worsens or changes unexpectedly, if not improving as expected, or if other problems arise. Your Current Medications: CONTINUE TAKING THE FOLLOWING MEDICATIONS: ALPRAZolam Oral : 0.5 mg 4x a day. Atenolol Oral : Tablet 100 mg, 1 tablet daily. Protonix Oral : 20 mg daily. Wellbutrin Oral : 150 mg daily. Prescription Medications: Bactrim DS 800 mg / 160 mg: take 1 tablet orally every 12 hours for 7 days. No refill. Substitution is permissible. Oxycodone/APAP 5 mg/325 mg: take 1-2 tablets orally every 6 hours as needed for pain. Dispense twelve (12). No refill. Follow-up: Follow up with your doctor in two days for wound check and packing removal. Understanding of the discharge instructions verbalized by patient. (Electronically signed by Leonie Clinton MD 06/30/2016 6:40)
--- NOTE | 2016-06-26 13:15 | ED NURSING NOTES ---
Clinical Report - Nurses [facility] [address] [place] [address] 06/26/2016 11:03 Patient: CORAZON SHIPLEY TRIAGE Triage time 11:10 Jun 26 2016. Acuity: LEVEL 3. Chief Complaint: SKIN LESION and . on (L) Buttock. Alert. CAROL COMA SCORE: Carol Coma Scale: 15- eyes open spontaneously (4); best verbal response- oriented x 4 (5); best motor response- obeys commands (6). --11:23 Kevin Davila R.N. 11:10 06/26/16. BP: 129/55. HR: 70. RR: 16. O2 saturation: 100% on room air. Temp: 99.1 F (oral). Pain level now: 11/10. Additional comments: pain in lesi. --11:23 Kevin Davila R.N. Weight: 74.8 kg. Height/Length: 71 inches Per Patient. BMI: 23. --11:19 Kevin Davila R.N. Medications ALPRAZolam Oral 0.5 mg, 4x a day. Atenolol Oral (Tablet 100 mg) 1 tablet, daily. Protonix Oral 20 mg, daily. --11:14 Kevin Davila R.N. Wellbutrin Oral 150 mg, daily. --11:14 Kevin Davila R.N. Allergies Penicillins. Definite Moderate(itching, swelling) --11:14 Kevin Davila R.N. History Arrived by private vehicle. Historian: patient. Unaccompanied. Primary physician (Sergey Graham). ( Reddened painful area on (L) buttock. Pt states that his started ~ 5 days ago.). Reported as located on the left buttock. Onset. (about 4 - 5 days ago). It is described as burning and painful. 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 (last dose yesterday). PAST MEDICAL HX: Immunizations: up-to-date. SOCIAL HX: Light tobacco smoker (cigarette)- less than 1/2 a pack per day. History of drug use: heroin. No alcohol use. No infectious disease exposure. ABUSE ASSESSMENT: No report of abuse. FALL RISK ASSESSMENT: Fall risk assessment completed. No fall risk identified. NUTRITIONAL RISK ASSESSMENT: The nutritional risk assessment revealed no deficiencies. FUNCTIONAL ASSESSMENT: Functional assessment: no impairments noted. LEARNING NEEDS ASSESSMENT: The learning needs assessment revealed no barriers. SKIN INTEGRITY ASSESSMENT: Skin integrity risk assessment completed. No skin integrity risk identified. --11:23 Kevin Davila R.N. PROBLEMS: Leukocytosis. Anemia. Sinusitis. Lua's Palsy. Substance Abuse. Herpes Zoster. Anxiety Reaction. Hypertension. Gastroesophageal Reflux Disease. --11:18 Kevin Davila R.N. Infective Endocarditis [RuleOut]. --11:18 Kevin Davila R.N. ADDITIONAL SURGERIES: Hernia Repair. Hip Surgery. Shoulder Surgery. Tonsillectomy. --11:18 Kevin Davila R.N. Interventions ID band on patient. To treatment room. --11:23 Kevin Davila R.N. PHYSICAL ASSESSMENT Ambulatory to room. GENERAL / NEURO / PSYCH: Alert. Oriented X 4. HEENT: Pupils equal, round and reactive to light. RESPIRATORY: Respirations not labored. CVS: Pulses within normal limits. GI / : Abdomen nontender. SKIN: Skin is intact, warm and dry. Swelling on the left buttock. Erythema on the left buttock. --11:25 Kevin Davila R.N. NURSING PROGRESS NOTES Patient gowned. Reassurance given. Patient identifiers checked. Call light placed in reach. Side rails up. Bed placed in lowest position. Brakes of bed on. Patient ready for evaluation- chart flagged and ED physician notified. --11:24 Kevin Davila R.N. 13:10 06/26/2016 Bactrim DS (Sulfamethoxazole-TMP DS) PO Tablets 1 tab given. Allergies verified and confirmed 5 rights. --13:10 Kevin Davila R.N. 12:20. I & D: Incision and Drainage of abscess performed by ED physician. Assisted by one nurse. The abscess is located on the ((L) Buttock). Preparation: Incision and Drainage tray set up with 2% lidocaine. Procedure; cavity was irrigated with saline and packed with gauze. Sample obtained for cultures. A dressing was applied. Post-procedure: he was stable, no complications, bleeding controlled and dressing intact. Estimated blood loss: 25 mL. Total time of assist / procedure: 15 minutes. --16:09 Kevin Davila R.N. 13:00. Applied sterile bulky dressing consisting of 4x4 gauze. Secured with tape. --16:24 Kevin Davila R.N. DISPOSITION / DISCHARGE 13:15 06/26/16. BP: 128/66. HR: 66. RR: 16. O2 saturation: 99% on room air. Temp: 98.3 F (oral). Pain level now: 10/11. Additional comments: (L) Buttock pain. --16:32 Kevin Davila R.N. Departure time: 1320. --16:32 Kevin Davila R.N. 13:20. Condition at departure: improved. No learning barriers present. Discharge instructions provided and reviewed with the patient. Reviewed medication(s) (prescription given to pt). Reviewed wound care instructions. Reviewed referral to family practice for followup. Patient verbalized understanding. Written instructions provided in [place]. The patient was discharged by the physician. He was discharged home and unaccompanied at time of discharge. He left the Emergency Department ambulatory and via private vehicle. Patient driving. --16:34 Kevin Davila R.N. Locked/Released at 06/26/2016 16:34 by Kevin Davila R.N.
--- NOTE | 2016-06-26 13:16 | ED ORDER SUMMARY ---
..... Patient: CORAZON SHIPLEY OrderSheet [facility] VisitID: [id number] [address] [place] [address] 60y, M Registration Date/Time: 06/26/2016 ORDER SHEET Weight: 74.8 kg Allergies: Penicillins GENERAL ORDERS: MEDICATION ORDERS: Bactrim DS PO (Tablet 800-160 mg) 1 tab (NOW) (13:06 06/26/2016 Roman WALTON) (13:10 Analisa Gipson) IV FLUIDS: ORDER SHEET NOTES: [Electronically signed by Kevin Davila R.N. (16:34 06/26/2016)] [Electronically signed by Leonie Clinton MD (06:40 06/30/2016)] [Electronically locked/signed by Kevin Davila R.N. (16:34 06/26/2016)]
--- NOTE | 2016-06-26 13:16 | ED ORDER SUMMARY ---
..... Patient: CORAZON SHIPLEY OrderSheet [facility] VisitID: [id number] [address] [place] [address] 60y, M Registration Date/Time: 06/26/2016 ORDER SHEET Weight: 74.8 kg Allergies: Penicillins GENERAL ORDERS: MEDICATION ORDERS: Bactrim DS PO (Tablet 800-160 mg) 1 tab (NOW) (13:06 06/26/2016 Roman WALTON) (13:10 Analisa Gipson) IV FLUIDS: ORDER SHEET NOTES: [Electronically signed by Kevin Davila R.N. (16:34 06/26/2016)] [Electronically signed by Leonie Clinton MD (06:40 06/30/2016)] [Electronically locked/signed by Kevin Davila R.N. (16:34 06/26/2016)]
--- NOTE | 2016-06-30 06:40 | ED DISCHARGE INSTRUCTIONS ---
Patient: CORAZON SHIPLEY General Instructions [facility] VisitID: [id number] [place] [address] 60y, M Registration Date/Time: 06/26/2016 Single deep abscess to the left lower extremity with incision and drainage (buttock). INSTRUCTIONS Warnings: GENERAL WARNINGS: Return or contact your physician immediately if your condition worsens or changes unexpectedly, if not improving as expected, or if other problems arise. Your Current Medications: CONTINUE TAKING THE FOLLOWING MEDICATIONS: ALPRAZolam Oral : 0.5 mg 4x a day. Atenolol Oral : Tablet 100 mg, 1 tablet daily. Protonix Oral : 20 mg daily. Wellbutrin Oral : 150 mg daily. Prescription Medications: Bactrim DS 800 mg / 160 mg: take 1 tablet orally every 12 hours for 7 days. No refill. Substitution is permissible. Oxycodone/APAP 5 mg/325 mg: take 1-2 tablets orally every 6 hours as needed for pain. Dispense twelve (12). No refill. Follow-up: Follow up with your doctor in two days for wound check and packing removal. Understanding of the discharge instructions verbalized by patient. ADDITIONAL INFORMATION Abscess [Incision & Drainage] An abscess (sometimes called a boil) occurs when bacteria get trapped under the skin and begin to grow. Pus forms inside the abscess as the body responds to the bacteria. An abscess can occur with an insect bite, ingrown hair, blocked oil gland, pimple, cyst, or puncture wound. Treatment of your abscess has required an incision to drain the pus. If the abscess pocket was large, a gauze packing may have been inserted. This will need to be removed and possibly replaced on your next visit. Antibiotics are not required in the treatment of a simple abscess, unless the infection is spreading into the skin around the wound (known as cellulitis). Healing of the wound will take about one to two weeks depending on the size of the abscess. Healthy tissue will grow from the bottom and sides of the opening until it seals over. Home Care: The wound may drain for the first two days. Cover the wound with a clean dry dressing. If the dressing becomes soaked with blood or pus, change it. If a gauze packing was placed inside the abscess cavity, you may be advised to remove it yourself. You may do this in the shower. Once the packing is removed, you should wash the area in the shower or bath 3 to 4 times a day, until the skin opening has closed. If you were prescribed antibiotics, take them as directed until they are all gone. You may use acetaminophen (Tylenol) or ibuprofen (Motrin, Advil) to control pain, unless another pain medicine was prescribed. [ NOTE: If you have liver disease or ever had a stomach ulcer, talk with your doctor before using these medicines.] Follow Up with your doctor as advised by our staff. If a gauze packing was inserted in your wound, it should be removed in 1-2 days. Check your wound every day for the signs of worsening infection listed below. Get Prompt Medical Attention if any of the following occur: Increasing redness or swelling Red streaks in the skin leading away from the wound Increasing local pain or swelling Continued pus draining from the wound two days after treatment Fever of 100.4F (38C) or higher, or as directed by your healthcare provider You have been given the following additional information: Abscess, Incision And Drainage (Electronically signed by Leonie Clinton MD 06/30/2016 6:40)
--- NOTE | 2016-06-30 06:40 | ED MAR SUMMARY ---
..... Medication Administration Record [facility] [address] [place] [address] Patient: CROAZON SHIPLEY Visit ID: [id number] 60y, M Weight: 74.8 kg Height/Length: 71 in BMI: 23 ALLERGIES: Penicillins Given 13:10 06/26/2016 Kevin Davila R.N. Medication Administered: BACTRIM DS [PO] (SULFAMETHOXAZOLE-TMP DS), Dose: 1 tab Tablets PO. Medication Ordered: Bactrim DS PO (Tablet 800-160 mg) 1 tab (NOW).
--- NOTE | 2016-06-30 06:40 | ED MAR SUMMARY ---
..... Medication Administration Record [facility] [address] [place] [address] Patient: CORAZON SHIPLEY Visit ID: [id number] 60y, M Weight: 74.8 kg Height/Length: 71 in BMI: 23 ALLERGIES: Penicillins Given 13:10 06/26/2016 Kevin Davila R.N. Medication Administered: BACTRIM DS [PO] (SULFAMETHOXAZOLE-TMP DS), Dose: 1 tab Tablets PO. Medication Ordered: Bactrim DS PO (Tablet 800-160 mg) 1 tab (NOW).
--- NOTE | 2016-06-30 06:40 | ED MED RECONCILIATION SUMMARY ---
Patient: CORAZON SHIPLEY Medication Reconciliation Report [facility] VisitID: [id number] [address] [place] [address] 60y, M Registration Date/Time: 06/26/2016 Weight: 74.8 kg Height/Length: 71 in. BMI: 23.0 ALLERGIES: Penicillins The patient's Home Medications are listed below: CONTINUE TAKING THE FOLLOWING MEDICATIONS: ALPRAZolam Oral 0.5 mg, 4x a day Atenolol Oral (100 mg) 1 tablet, daily Protonix Oral 20 mg, daily Wellbutrin Oral 150 mg, daily The source(s) of the original Home Medication information: Not obtained. The following Medications were given to the patient in the Emergency Department: Bactrim DS [PO] PO 1 tab, administered: 06/26/2016 1:10:00 PM The following Medications were prescribed to the patient: Bactrim DS 800 mg / 160 mg: take 1 tablet orally every 12 hours for 7 days. No refill. Substitution is permissible. -- Leonie Clinton MD Oxycodone/APAP 5 mg/325 mg: take 1-2 tablets orally every 6 hours as needed for pain. Dispense twelve (12). No refill. -- Leonie Clinton MD
--- NOTE | 2016-06-30 06:40 | ED MED RECONCILIATION SUMMARY ---
Patient: CORAZON SHIPLEY Medication Reconciliation Report [facility] VisitID: [id number] [address] [place] [address] 60y, M Registration Date/Time: 06/26/2016 Weight: 74.8 kg Height/Length: 71 in. BMI: 23.0 ALLERGIES: Penicillins The patient's Home Medications are listed below: CONTINUE TAKING THE FOLLOWING MEDICATIONS: ALPRAZolam Oral 0.5 mg, 4x a day Atenolol Oral (100 mg) 1 tablet, daily Protonix Oral 20 mg, daily Wellbutrin Oral 150 mg, daily The source(s) of the original Home Medication information: Not obtained. The following Medications were given to the patient in the Emergency Department: Bactrim DS [PO] PO 1 tab, administered: 06/26/2016 1:10:00 PM The following Medications were prescribed to the patient: Bactrim DS 800 mg / 160 mg: take 1 tablet orally every 12 hours for 7 days. No refill. Substitution is permissible. -- Leonie Clinton MD Oxycodone/APAP 5 mg/325 mg: take 1-2 tablets orally every 6 hours as needed for pain. Dispense twelve (12). No refill. -- Leonie Clinton MD
== END 2016-06-26 13:20 | disposition home or self-care (01) ==
LOC: ED SRH 10:59
DX: L02.31 Cutaneous abscess of buttock (principal); K21.9 Gastro-esophageal reflux disease without esophagitis; I10 Essential (primary) hypertension; Z79.899 Other long term (current) drug therapy; Z88.0 Allergy status to penicillin

== ENCOUNTER 2016-09-24 11:22 | Emergency (ER) | payer OTHER ==
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
--- NOTE | 2016-09-24 14:51 | ED MAR SUMMARY ---
..... Medication Administration Record [facility] [address] [place], [place] [id number] Patient: CORAZON SHIPLEY Visit ID: [id number] 61y, M Weight: 24.9 kg Height/Length: 70 in BMI: 7.9 ALLERGIES: Penicillins
--- NOTE | 2016-09-24 14:51 | ED MAR SUMMARY ---
..... Medication Administration Record [facility] [address], [place] [id number] Patient: CORAZON SHIPLEY Visit ID: [id number] 61y, M Weight: 24.9 kg Height/Length: 70 in BMI: 7.9 ALLERGIES: Penicillins
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
== END 2016-09-24 13:26 | disposition home or self-care (01) ==
LOC: ED SRH 11:22
DX: F41.1 Generalized anxiety disorder (principal); I10 Essential (primary) hypertension; F17.210 Nicotine dependence, cigarettes, uncomplicated; Z79.899 Other long term (current) drug therapy